=== PATIENT | female | born 1985 | race Caucasian/White ===

== ENCOUNTER 2016-09-06 12:55 | Emergency (ER) | payer OTHER ==
[2016-09-06 13:06] VITALS: BP 130/93
[2016-09-06] MEDS ORDERED: Ibuprofen TAB* 600 MG PO ONE (13:46)
--- NOTE | 2016-09-06 13:50 | RAD ---
INDICATION: Large lump in the navicular region. Pain. Fall. COMPARISON: November 29, 2006 LEFT fourth finger radiographs. TECHNIQUE: AP, lateral, and oblique views LEFT wrist. Scaphoid view obtained. AP, lateral, and oblique views LEFT hand. REPORT: No cortical disruption or suspicious trabecular irregularity to suggest fracture at the wrist or hand. Normal articular alignment throughout. Mild soft tissue swelling about the wrist. IMPRESSION: No radiographic evidence for fracture or articular malalignment at the LEFT wrist or hand. If there is high index of suspicion for an occult scaphoid fracture repeat exam in 7 - 10 days would be suggested.
--- NOTE | 2016-09-06 14:34 | UC ---
Lakia Cordon Janilya, scrib[facility] for [facility] MD on 09/06/16 at 1412 . Hand/Wrist HPI - HPI Summary HPI Summary: Nurse's note: FELL BACKWARDS ONTO HER LEFT HAND TODAY AROUND 1230. SLIPPED ON THE ICE. NO PREVIOUS INJURIES TO THIS HAND. note: Vital signs are stable. Pulse is 55. Pulse Ox is 100. 8/10 pain. Non- contributory PMHx. HPI: A 31 y/o female came in to [facility] presenting w/ a sudden onset of constant left hand pain due to fall that happened today around noon. Pt states she slipped on ice and caught herself with her left hand. She did not damage her spine. She did not lose consciousness. She did not incur any significant injuries. And generally, the pt is healthy. It hurts to move her hand. It is also difficult to fully extend her fingers or form a fist. - History Of Current Complaint Chief Complaint: UCUpperExtremity Stated Complaint: WRIST INJURY Time Seen by Provider: 09/06/16 13:01 Hx Obtained From: Patient Hx Last Menstrual Period: MIRENA Onset/Duration: Sudden Onset, Lasting Hours, Still Present Severity Initially: Moderate Severity Currently: Moderate Character Of Pain: Throbbing Alleviating: Nothing Associated Signs And Symptoms: Positive: Swelling - Allergies/Home Medications Allergies/Adverse Reactions: Allergies Allergy/AdvReac Type Severity Reaction Status Date / Time Ciprofloxacin [From Cipro] AdvReac Severe "TENDON Verified 09/06/16 13:02 PROBLEMS" PMH/Surg Hx/FS Hx/Imm Hx Previously Healthy: Yes Endocrine History Of: Denies: Diabetes, Thyroid Disease Cardiovascular History Of: Denies: Cardiac Disorders, Hypertension Respiratory History Of: Reports: Bronchitis - HX BRONCHITIS- WHILE LIVING IN [facility] Denies: COPD, Asthma GI/ History Of: Denies: Ulcer - Surgical History Surgical History: Yes Surgery Procedure, Year, and Place: DONATED EGGS-WITH ANESTHESIA. WISDOM TEETH , SURGERY A CHILD FOR CHRONIC UTIs - Family History Known Family History: Negative: Cardiac Disease, Hypertension, Diabetes - Social History Occupation: Employed Full-time Alcohol Use: Occasionally Substance Use Type: None Smoking Status (MU): Former Smoker Review of Systems Constitutional: Negative Skin: Negative Eyes: Negative ENT: Negative Respiratory: Negative Cardiovascular: Negative Gastrointestinal: Negative Genitourinary: Negative Motor: Negative Neurovascular: Negative Musculoskeletal: Arthralgia - left hand, Myalgia - left hand, Other: - mild swelling of left hand Neurological: Negative Psychological: Negative All Other Systems Reviewed And Are Negative: Yes Physical Exam Triage Information Reviewed: Yes Appearance: Well-Appearing, No Pain Distress, Well-Nourished Vital Signs: Initial Vital Signs Temp 98.3 F 09/06/16 13:03 Pulse 55 09/06/16 13:03 Resp 16 09/06/16 13:03 BP 130/93 09/06/16 13:03 Pulse Ox 100 09/06/16 13:03 Vital Signs Reviewed: Yes Eyes: Positive: Conjunctiva Clear ENT: Positive: Hearing grossly normal, Pharynx normal, TMs normal. Negative: Muffled/hoarse voice Neck: Positive: Supple, Nontender Respiratory: Positive: Chest non-tender, Lungs clear, Normal breath sounds, No respiratory distress Cardiovascular: Positive: RRR, No Murmur Abdomen Description: Positive: Nontender, No Organomegaly, Soft Bowel Sounds: Positive: Present Musculoskeletal: Positive: Other: - LEFT SHOULDER AND ELBOW NORMAL EXAM. LEFT WRIST - 2.5 CM MILD SWELLING OF DISTAL RADIUS, DORSAL ASPECT. NO ECCHYMOSIS NOTED. NO SCAPHOID TENDERNESS. RESTRICTED MOVEMENT SECONDARY TO PAIN. BLOOD CIRCULATION AND NEUROLOGICAL EXAM INTACT. Neurological: Positive: Alert Psychological: Positive: Age Appropriate Behavior Skin: Negative: rashes Diagnostics - Radiology hand xray Xray Interpretation: No Acute Changes - IMPRESSION: No radiographic evidence for fracture or articular malalignment at the LEFT wrist or hand. If there is high index of suspicion for an occult scaphoid fracture repeat exam in 7 - 10 days would be suggested. Radiology Interpretation Completed By: Radiologist wrist xray Xray Interpretation: No Acute Changes - IMPRESSION: No radiographic evidence for fracture or articular malalignment at the LEFT wrist or hand. If there is high index of suspicion for an occult scaphoid fracture repeat exam in 7 - 10 days would be suggested. Radiology Interpretation Completed By: Radiologist Hand/Wrist Course/Dx - Course Course Of Treatment: Considered fracture vs contusion and sprain of left wrist. Xrays of wrist and hand show negative results. Dx contusion and sprain of left wrist. - Differential Dx/Diagnosis Differential Diagnosis/HQI/PQRI: Contusion, Fracture, Sprain Provider Diagnoses: Contusion and sprain of left wrist. Discharge - Discharge Plan Condition: Stable Disposition: HOME Patient Education Materials: Contusion in Adults (ED), Wrist Sprain (ED) Forms: *Work Release Referrals: No Primary Care Phys,NOPCP [Primary Care Provider] - Additional Instructions: WE DISCUSSED: NO BROKEN BONES SEEN. YOU DO HAVE A LEFT WRIST SPRAIN AND CONTUSION. USE SPLINT. ELEVATE. WARM MOIST HEAT IN THE MORNING. ICE TO AREA DURING THE DAY. RE CHECK IN 2 WEEKS FOR CONTINUED PAIN OR NO IMPROVEMENT TO MAKE SURE THERE IS NO HIDDEN FRACTURE. FOR SIGNIFICANT PAIN, TRY CONTRAST BATHS. These treatments decrease swelling and pain, and increase mobility in the area of injury. Contrast treatments are usually done two to four times daily. First soak the injury in warm water for about 20 minutes. After a few minutes in the warm water, begin to gently move the joints to restore the range of motion to normal. Do not push beyond the point of discomfort. Next soak the injury in cold water (or ice) for 20 minutes. Allow it to rest while in the cold water. The documentation as recorded by the Lakia best Janilya accurately reflects the service I personally performed and the decisions made by me, Sandro Cleary MD.
== END 2016-09-06 14:40 | disposition home or self-care (01) ==
LOC: UCEAST 12:55
DX: S60.212A Contusion of left wrist, initial encounter (principal); S63.502A Unspecified sprain of left wrist, initial encounter; W00.0XXA Fall on same level due to ice and snow, initial encounter; Y93.9 Activity, unspecified; Y92.9 Unspecified place or not applicable; R03.0 Elevated blood-pressure reading, without diagnosis of hypertension; Z88.1 Allergy status to other antibiotic agents; Z87.891 Personal history of nicotine dependence
CPT/HCPCS: 99212; A9270-GY; G0463

== ENCOUNTER 2016-09-14 18:32 | Emergency (ER) | payer OTHER ==
[2016-09-14 18:51] VITALS: BP 134/72
--- NOTE | 2016-09-14 19:11 | UC ---
Skin Complaint HPI - HPI Summary HPI Summary: The patient comes in today for: 1. Sore side of the right now. Onset: one week ago, her right nasal piercing became sore. Palliative/provocative: Touching it makes it worse--more tender. Quality: Tenderness Region/radiation: Right nares. Severity: 08/12 Time: Constant. Associated symptoms: Event: She had her right nares piercing in early July of 2016 taking up to 6 months to fully heal. Draining: None. Fevers: None. * - History of Current Complaint Chief Complaint: UCSkin Time Seen by Provider: 09/14/16 18:56 Stated Complaint: SOFT TISSUE COMPLAINT Hx Obtained From: Patient Hx Last Menstrual Period: mirana ?: No - Allergy/Home Medications Allergies/Adverse Reactions: Allergies Allergy/AdvReac Type Severity Reaction Status Date / Time Ciprofloxacin [From Cipro] AdvReac Severe "TENDON Verified 09/06/16 13:02 PROBLEMS" Review of Systems Constitutional: Negative Skin: Rash Eyes: Negative ENT: Negative Respiratory: Negative Cardiovascular: Negative Gastrointestinal: Negative Genitourinary: Negative Motor: Negative All Other Systems Reviewed And Are Negative: Yes PMH/Surg Hx/FS Hx/Imm Hx Previously Healthy: Yes - Mirena/family planning. Endocrine History Of: Denies: Diabetes, Thyroid Disease, Hyperthyroidism, Hypothyroidism, Dyslipidemia Cardiovascular History Of: Denies: Cardiac Disorders, Hypertension, Pacemaker/ICD, Myocardial Infarction , Congestive Heart Failure, Atrial Fibrillation, Deep Vein Thrombosis, Bleeding Disorders Respiratory History Of: Reports: Bronchitis - HX [facility]ON[facility]IS- [facility] Denies: COPD, Asthma, Pneumonia, Pulmonary Embolism GI/ History Of: Denies: Gastroesophageal Reflux, Ulcer, Gastrointestinal Bleed, Gall Bladder Disease, Kidney Stones, Diverticulitis, Renal Disease, Urosepsis Neurological History Of: Denies: TIA, CVA, Dementia, Seizures, Migraine Psychological History Of: Denies: Anxiety, Depression, Bipolar Disorder, Schizophrenia, Post Traumatic Stress Disorder Cancer History Of: Denies: Lung Cancer, Colorectal Cancer, Breast Cancer, Prostate Cancer, Cervical Cancer Other History Of: Negative For: HIV, Hepatitis B, Hepatitis C, Anticoagulant Therapy - Surgical History Surgical History: Yes Surgery Procedure, Year, and Place: DONATED EGGS-WITH ANESTHESIA. WISDOM TEETH , SURGERY A CHILD FOR CHRONIC UTIs - Family History Known Family History: Positive: Hypertension Negative: Cardiac Disease, Diabetes - Social History Occupation: Employed Full-time Alcohol Use: Weekly Substance Use Type: None Smoking Status (MU): Former Smoker Physical Exam Triage Information Reviewed: Yes Appearance: Well-Appearing, No Pain Distress, Well-Nourished Vital Signs: Initial Vital Signs Temp 98.8 F 09/14/16 18:46 Pulse 59 09/14/16 18:46 Resp 18 09/14/16 18:46 BP 134/72 09/14/16 18:46 Pulse Ox 100 09/14/16 18:46 Vital Signs Reviewed: Yes Eyes: Positive: Conjunctiva Clear. Negative: Discharge ENT: Positive: Hearing grossly normal, Other: - She has some redness and tenderness around the right nose nasal piercing. No discharge present. No edema.. Negative: Pharyngeal erythema, Nasal congestion, Nasal drainage, TM bulging, TM dull, TM red, Tonsillar swelling, Tonsillar exudate Dental: Negative: Gross Decay/Caries @, Dental Fracture @ Neck: Positive: Supple, Nontender, No Lymphadenopathy. Negative: Nuchal Rigidity Respiratory: Positive: Chest non-tender, Lungs clear, No respiratory distress, No accessory muscle use. Negative: Crackles, Wheezing Cardiovascular: Positive: RRR, No Murmur Abdomen Description: Positive: Nontender, No Organomegaly, Soft. Negative: Distended, Guarding Musculoskeletal: Positive: Strength Intact, ROM Intact Neurological: Positive: Alert, Muscle Tone Normal Psychological: Positive: Age Appropriate Behavior, Consolable Skin: Negative: rashes, breakdown Course/Dx - Course Course Of Treatment: Patient told of my recommendation to take two antibiotics. - Differential Diagnoses - Skin Complaint Differential Diagnoses: Cellulitis - Diagnoses Provider Diagnoses: Early cellulitis of the right nares around the piercing. Discharge - Discharge Plan Condition: Stable Disposition: HOME Referrals: No Primary Care Phys,NOPCP [Primary Care Provider] - 1 Week (Please see your primary care provider next week to see how well you are doing. If you don't have a primary care provider, please call the physician referral phone line to help you get one. If you can't get in timely, you can see us until you do. If you get worse, please go to the local ER.) [facility] [place]Outside]
[2016-09-14] MEDS ORDERED: Sulfamethox/Trimethoprim DS 800/160* TAB PO ONE (19:15)
[2016-09-14] MEDS ORDERED: Cephalexin CAP* 500 MG PO ONE (19:18)
== END 2016-09-14 19:36 | disposition home or self-care (01) ==
LOC: UCEAST 18:32
DX: J34.0 Abscess, furuncle and carbuncle of nose (principal); Z88.1 Allergy status to other antibiotic agents; Z87.891 Personal history of nicotine dependence
CPT/HCPCS: 99213; A9270-GY; G0463

== ENCOUNTER 2016-11-25 15:40 | Emergency (ER) | payer OTHER ==
[2016-11-25 16:18] VITALS: BP 98/54
--- NOTE | 2016-11-25 16:41 | UC ---
Skin Complaint HPI - HPI Summary HPI Summary: Yesterday noticed a painful raised rash on L trunk, now has a new group of bumps on her back. Looked up symptoms online and thinks it is shingles. Had varicella as a child, has been training heavily for an ultramarathon recently and is feeling tired out. - History of Current Complaint Chief Complaint: UCSkin Time Seen by Provider: 11/25/16 16:20 Stated Complaint: RASH TORSO Hx Obtained From: Patient Hx Last Menstrual Period: mirena ?: No Onset/Duration: Gradual Onset, Lasting Days Timing: Constant Onset Severity: Mild Current Severity: Moderate Location: Discrete Character: Pain, Raised, Painful Associated Signs & Symptoms: Positive: Rash - Allergy/Home Medications Allergies/Adverse Reactions: Allergies Allergy/AdvReac Type Severity Reaction Status Date / Time Ciprofloxacin [From Cipro] AdvReac Severe "TENDON Verified 11/25/16 16:12 PROBLEMS" Review of Systems Constitutional: Negative Skin: Rash Eyes: Negative ENT: Negative Respiratory: Negative Cardiovascular: Negative Gastrointestinal: Negative Genitourinary: Negative Motor: Negative Neurovascular: Negative Musculoskeletal: Negative Neurological: Negative Psychological: Negative All Other Systems Reviewed And Are Negative: Yes PMH/Surg Hx/FS Hx/Imm Hx Endocrine History Of: Denies: Diabetes, Thyroid Disease, Hyperthyroidism, Hypothyroidism, Dyslipidemia Cardiovascular History Of: Denies: Cardiac Disorders, Hypertension, Pacemaker/ICD, Myocardial Infarction , Congestive Heart Failure, Atrial Fibrillation, Deep Vein Thrombosis, Bleeding Disorders Respiratory History Of: Reports: Bronchitis - HX BRONCHITIS- WHILE LIVING IN [facility] Denies: COPD, Asthma, Pneumonia, Pulmonary Embolism GI/ History Of: Denies: Gastroesophageal Reflux, Ulcer, Gastrointestinal Bleed, Gall Bladder Disease, Kidney Stones, Diverticulitis, Renal Disease, Urosepsis Neurological History Of: Denies: TIA, CVA, Dementia, Seizures, Migraine Psychological History Of: Denies: Anxiety, Depression, Bipolar Disorder, Schizophrenia, Post Traumatic Stress Disorder Cancer History Of: Denies: Lung Cancer, Colorectal Cancer, Breast Cancer, Prostate Cancer, Cervical Cancer Other History Of: Negative For: HIV, Hepatitis B, Hepatitis C, Anticoagulant Therapy - Surgical History Surgical History: Yes Surgery Procedure, Year, and Place: DONATED EGGS-WITH ANESTHESIA. WISDOM TEETH , SURGERY A CHILD FOR CHRONIC UTIs - Family History Known Family History: Positive: Hypertension Negative: Cardiac Disease, Diabetes - Social History Lives: Alone Alcohol Use: Occasionally Substance Use Type: None Smoking Status (MU): Former Smoker - Immunization History Most Recent Influenza Vaccination: none Physical Exam Triage Information Reviewed: Yes Appearance: Well-Appearing, No Pain Distress, Well-Nourished Vital Signs: Initial Vital Signs Temp 98.7 F 11/25/16 16:13 Pulse 57 11/25/16 16:13 Resp 16 11/25/16 16:13 BP 98/54 11/25/16 16:13 Pulse Ox 96 11/25/16 16:13 Vital Signs Reviewed: Yes Eye Exam: Normal Eyes: Positive: Conjunctiva Clear ENT Exam: Normal ENT: Positive: Normal ENT inspection, Hearing grossly normal, Pharynx normal, TMs normal Dental Exam: Normal Neck exam: Normal Neck: Positive: Supple, Nontender, No Lymphadenopathy Respiratory Exam: Normal Respiratory: Positive: Chest non-tender, Lungs clear, Normal breath sounds, No respiratory distress, No accessory muscle use Cardiovascular Exam: Normal Cardiovascular: Positive: RRR, No Murmur Musculoskeletal Exam: Normal Neurological Exam: Normal Neurological: Positive: Alert, Muscle Tone Normal Psychological Exam: Normal Skin Exam: Other - grouped vesicles on an erythematous base following dermatomal pattern L trunk Course/Dx - Diagnoses Provider Diagnoses: varicella zoster L chest Discharge - Discharge Plan Condition: Stable Disposition: HOME Prescriptions: ValACYclovir (*) [Valtrex 1 GM(*)] 1 gm PO TID #21 tab Patient Education Materials: Shingles (ED) Referrals: No Primary Care Phys,NOPCP [Primary Care Provider] - Additional Instructions: If you are unable to manage your pain with ibuprofen alone you can get me a message on Thursday or Thursday and I can send in a prescription for something like codeine or hydrocodone.
== END 2016-11-25 16:45 | disposition home or self-care (01) ==
LOC: UCEAST 15:40
DX: B02.9 Zoster without complications (principal); Z88.3 Allergy status to other anti-infective agents; Z87.09 Personal history of other diseases of the respiratory system; Z87.891 Personal history of nicotine dependence
CPT/HCPCS: 99212; G0463

== ENCOUNTER 2017-01-18 12:03 | Emergency (ER) | payer OTHER ==
[2017-01-18 12:10] VITALS: BP 108/60
[2017-01-18] MEDS ORDERED: Ibuprofen TAB* 400 MG PO ONE (12:58)
[2017-01-18] MEDS ORDERED: oxyCODONE/Acetamin 5/325 MG* TAB PO ONE ×2 (12:58→13:41)
[2017-01-18] MEDS ORDERED: oxyCODONE/Acetamin 5/325 MG* TAB ONE (13:43)
--- NOTE | 2017-01-18 13:47 | RAD ---
INDICATION: Left upper arm and shoulder pain after a fall TECHNIQUE: 4 views of the left shoulder and 2 views of the left humerus were obtained. FINDINGS: There is a comminuted fracture involving the surgical neck and greater trochanter of the left humerus. There is a small degree of impaction. The glenohumeral joint is otherwise appropriately articulated. The remaining visualized bones are intact and appropriately aligned. IMPRESSION: COMMINUTED FRACTURE INVOLVING THE LEFT HUMERAL SURGICAL NECK AND GREATER TROCHANTER.
--- NOTE | 2017-01-18 13:50 | ED ---
Upper Extremity Pain - HPI Summary HPI Summary: Patient is training for a 60 mile ultra marathon that is in two weeks and while running today she tripped and fell. She landed on her left shoulder and had immediate severe pain. EMS was called and she was transported to the ED. She denies previous injury to this shoulder. She is right handed. She denies N/T in the extremity. - History of Current Complaint Chief Complaint: EDExtremityUpper Stated Complaint: FALL Time Seen by Provider: 01/18/17 12:31 Hx Obtained From: Patient Hx Last Menstrual Period: mirena Mechanism Of Injury: Fall From A Standing Position Onset/Duration: Started Hours Ago Timing: Constant Severity Initially: Severe Severity Currently: Severe Pain Location: Shoulder Character: Sharp, Aching Aggravating Factor(s): Movement Alleviating Factor(s): Nothing Associated Signs & Symptoms: Positive: Swelling Related History: Dominant Hand Right - Allergies/Home Medications Allergies/Adverse Reactions: Allergies Allergy/AdvReac Type Severity Reaction Status Date / Time Ciprofloxacin [From Cipro] AdvReac Severe "TENDON Verified 11/25/16 16:12 PROBLEMS" PMH/Surg Hx/FS Hx/Imm Hx Previously Healthy: Yes Endocrine/Hematology History: Denies: Hx Anticoagulant Therapy, Hx Diabetes, Hx Thyroid Disease Cardiovascular History: Denies: Hx Congestive Heart Failure, Hx Deep Vein Thrombosis, Hx Hypertension , Hx Myocardial Infarction, Hx Pacemaker/ICD Respiratory History: Denies: Hx Asthma, Hx Chronic Obstructive Pulmonary Disease (COPD), Hx Lung Cancer, Hx Pneumonia, Hx Pulmonary Embolism GI History: Denies: Hx Gall Bladder Disease, Hx Gastrointestinal Bleed, Hx Ulcer, Hx Urosepsis History: Denies: Hx Kidney Stones, Hx Renal Disease Sensory History: Reports: Hx Contacts or Glasses - GLASSES Denies: Hx Hearing Aid Opthamlomology History: Reports: Hx Contacts or Glasses - GLASSES Neurological History: Denies: Hx Dementia, Hx Migraine, Hx Seizures, Hx Transient Ischemic Attacks (TIA) Psychiatric History: Denies: Hx Anxiety, Hx Eating Disorder, Hx Depression, Hx Schizophrenia, Hx Bipolar Disorder, Hx of Violent Episodes Against Others - Surgical History Surgery Procedure, Year, and Place: DONATED EGGS-WITH ANESTHESIA. WISDOM TEETH , SURGERY A CHILD FOR CHRONIC UTIs Hx Anesthesia Reactions: Yes - WISDOM TEETH- STARTED TO WAKE UP DURING THE PROCEDURE Infectious Disease History: Denies: Hx Clostridium Difficile, Hx Hepatitis, Hx Human Immunodeficiency Virus (HIV), Hx of Known/Suspected MRSA, Hx Shingles, Hx Tuberculosis, Hx Known/ Suspected VRE, Hx Known/Suspected VRSA, History Other Infectious Disease, Traveled Outside the [place] in Last 30 Days - Family History Known Family History: Positive: Hypertension Negative: Cardiac Disease, Diabetes - Social History Occupation: Employed Full-time Lives: Alone Alcohol Use: Occasionally Substance Use Type: Reports: None Smoking Status (MU): Former Smoker Review of Systems Positive: Myalgia, Decreased ROM, Edema Negative: Paresthesia, Numbness All Other Systems Reviewed And Are Negative: Yes Physical Exam Triage Information Reviewed: Yes Vital Signs On Initial Exam: Initial Vitals Temp Pulse Resp BP Pulse Ox 98.8 F 60 18 108/60 100 01/18/17 12:08 01/18/17 12:08 01/18/17 12:08 01/18/17 12:08 01/18/17 12:08 Vital Signs Reviewed: Yes Appearance: Positive: Well-Appearing, Well-Nourished, Pain Distress Skin: Positive: Warm, Skin Color Reflects Adequate Perfusion, Dry, Soft Head/Face: Positive: Normal Head/Face Inspection Eyes: Positive: EOMI, SIMONA, Conjunctiva Clear ENT: Positive: Hearing grossly normal Respiratory/Lung Sounds: Positive: Breath Sounds Present Cardiovascular: Positive: RRR Musculoskeletal: Positive: Limited @ - movement in any direction of the left shoulder is limited by pain, Pain @ - TTP proximal humerus; non-tender scapular spine, clavicle or distal humerus and elbow., Edema Left - shoulder Neurological: Positive: Sensory/Motor Intact, Alert, Oriented to Person Place, Time, NV Bundle Intact Distally, Normal Gait Psychiatric: Positive: Affect/Mood Appropriate AVPU Assessment: Alert Procedures - Splinting Location: left shoulder Pre-Made Type: velcro Splint: shoulder immobilizer Pre-Proc Neuro Vasc Exam: normal Post-Proc Neuro Vasc Exam: normal Diagnostics - Vital Signs Vital Signs Temp Pulse Resp BP Pulse Ox 01/18/17 12:33 98.8 F 60 18 108/60 100 01/18/17 12:08 98.8 F 60 18 108/60 100 - Laboratory Lab Statement: Any lab studies that have been ordered have been reviewed, and results considered in the medical decision making process. - Radiology No standard instances Xray Interpretation: Positive (See Comments) Radiology Interpretation Completed By: Radiologist - comminuted left proximal humerus fracture - CT No standard instances CT Interpretation: Positive (See Comments) CT Interpretation Completed By: Radiologist - left comminuted proximal humerus fracture Course/Dx - Diagnoses Differential Diagnosis/HQI/PQRI: Positive: Arthritis, Bursitis, Contusion, Fracture (Closed), Hematoma, Strain, Sprain Provider Diagnoses: Comminuted left humeral fracture - Physician Notifications Discussed Care of Patient With: Dr. Waite, orthopedic surgeon Instructed by Provider To: Have Pt Call For Appt. Discharge - Discharge Plan Condition: Stable Disposition: HOME Prescriptions: Ibuprofen TAB* [Motrin TAB* 600 MG] 600 mg PO Q6H PRN #60 tab PRN Reason: Pain oxyCODONE/Acetamin 5/325 MG* [Percocet 5/325 TAB*] 2 tab PO Q4H PRN #40 tab MDD 12 PRN Reason: Pain Patient Education Materials: Proximal Humerus Fracture (ED) Referrals: Moreno Waite MD [Medical Doctor] - No Primary Care Phys,NOPCP [Primary Care Provider] - Additional Instructions: Wear your immobilizer at all times. You can move your elbow, wrist and hand but do not take your arm away from your body. Apply ice to the shoulder for 20 minutes several times daily to decrease swelling and pain. Use ibuprofen 600mg three times daily with meals for the next 5-7 days to decrease swelling and pain as well. Take the pain pill as needed for uncontrolled pain. Sleep in an upright position to reduce pain. Call Dr. aWite's office in the morning for an appointment this week for evaluation. Return to the emergency department if your symptoms worsen.
--- NOTE | 2017-01-18 14:57 | RAD ---
INDICATION: Left shoulder pain after a fall COMPARISON: Same day radiograph that shows a comminuted fracture at the left humerus TECHNIQUE: Noncontrast CT examination of the left humerus. Axial images were acquired and sagittal and coronal reformats were created and independently analyzed. FINDINGS: There is a comminuted fracture at the left surgical neck with a small degree of impaction of the shaft towards the humeral head. The fracture involves the greater trochanter. The humeral head appears to be appropriately articulated with the bony glenoid labrum. There is widening of the superior aspect of the left acromioclavicular joint. The capsule appears to be intact. Remaining visualized bones are intact. IMPRESSION: 1. Comminuted fracture involving the surgical neck and greater tuberosity of the left humerus. 2. Potential grade 1 left acromioclavicular separation.
== END 2017-01-18 15:07 | disposition home or self-care (01) ==
LOC: ED 12:03
DX: S42.202A Unspecified fracture of upper end of left humerus, initial encounter for closed fracture (principal); W01.0XXA Fall on same level from slipping, tripping and stumbling without subsequent striking against object, initial encounter; Y93.02 Activity, running; Y92.9 Unspecified place or not applicable; Z88.1 Allergy status to other antibiotic agents; Z87.891 Personal history of nicotine dependence
CPT/HCPCS: 99282; A9270-GY

== ENCOUNTER 2018-12-06 16:16 | Emergency (ER) | payer OTHER ==
[2018-12-06 17:49] VITALS: BP 115/74
[2018-12-06] MEDS ORDERED: Ibuprofen TAB* 600 MG PO ONE (18:24)
--- NOTE | 2018-12-06 18:27 | UC ---
Throat Pain/Nasal Yung HPI - HPI Summary HPI Summary: 33-year-old woman 33-year-old woman comes in with a chief complaint of one week of upper respiratory tract infection symptoms. She's had some rhinorrhea and it 's yellow and green. Also coughing up yellow green and brown sputum. She's also now developing drainage in her right eye. Since yesterday her symptoms got quite a bit worse. She is having fevers now. She is not a smoker. - History of Current Complaint Chief Complaint: UCRespiratory Stated Complaint: SORE THROAT, AND COUGH Time Seen by Provider: 12/06/18 18:03 Hx Last Menstrual Period: MIRENA IUD Pain Intensity: 6 - Allergies/Home Medications Allergies/Adverse Reactions: Allergies Allergy/AdvReac Type Severity Reaction Status Date / Time ciprofloxacin [From Cipro] Allergy "TENDON Verified 12/06/18 17:50 PROBLEMS" Home Medications: Home Medications Dextromethorphn/Acetaminoph/Cp [Vicks Nyquil Cold & Flu N] 1 liq PO ONCE PRN 01/19 [History Confirmed 12/06/18] PMH/Surg Hx/FS Hx/Imm Hx Previously Healthy: Yes Other History Of: Negative For: HIV, Hepatitis B, Hepatitis C, Anticoagulant Therapy - Surgical History Surgical History: Yes Surgery Procedure, Year, and Place: DONATED EGGS-WITH ANESTHESIA,. WISDOM TEETH , SURGERY A CHILD FOR CHRONIC , SINUS SURGERY - Family History Known Family History: Positive: Hypertension Negative: Cardiac Disease, Diabetes - Social History Alcohol Use: Occasionally Substance Use Type: None Smoking Status (MU): Former Smoker - Immunization History Most Recent Influenza Vaccination: none Review of Systems All Other Systems Reviewed And Are Negative: Yes Constitutional: Positive: Fever, Chills Skin: Positive: Negative Eyes: Positive: Drainage, Eye Redness ENT: Positive: Sore Throat, Nasal Discharge, Sinus Congestion Respiratory: Positive: Cough, Other - SEE HPI Cardiovascular: Positive: Negative Gastrointestinal: Positive: Negative Motor: Positive: Negative Neurovascular: Positive: Negative Musculoskeletal: Positive: Negative Neurological: Positive: Negative Psychological: Positive: Negative Is Patient Immunocompromised?: No Physical Exam Triage Information Reviewed: Yes Appearance: No Pain Distress, Well-Nourished, Ill-Appearing - MILD Vital Signs: Initial Vital Signs Temp 101.2 F 12/06/18 17:42 Pulse 99 12/06/18 17:42 Resp 20 05/06/19 17:42 BP 115/74 12/06/18 17:42 Pulse Ox 98 12/06/18 17:42 Vital Signs Reviewed: Yes Eyes: Positive: Conjunctiva Inflamed - RT, Discharge - RT ENT: Positive: Pharyngeal erythema, Nasal congestion, Nasal drainage, TMs normal Neck: Positive: Supple Respiratory: Positive: Lungs clear, Normal breath sounds, No respiratory distress Cardiovascular: Positive: RRR Musculoskeletal Exam: Normal Musculoskeletal: Positive: Strength Intact, ROM Intact Neurological Exam: Normal Neurological: Positive: Alert, Muscle Tone Normal Psychological Exam: Normal Psychological: Positive: Age Appropriate Behavior Skin Exam: Normal Throat Pain/Nasal Course/Dx - Course Course Of Treatment: Due to the fevers and color of rhinorrhea/sputum, will Rx ABx. - Differential Dx/Diagnosis Provider Diagnosis: Sinusitis, Conjunctivitis Discharge - Sign-Out/Discharge Documenting (check all that apply): Patient Departure All imaging exams completed and their final reports reviewed: No Studies - Discharge Plan Condition: Stable Disposition: HOME Prescriptions: Amoxicillin/Clavulanate TAB* [Augmentin TAB 875*] 875 mg PO BID #20 tab Tobramycin 0.3% OPHTH.RAUL* 1 drop RIGHT EYE Q4H #1 btl Patient Education Materials: Sinusitis (ED), Conjunctivitis (ED) Forms: *Work Release Referrals: [facility] [place] [facility] [Outside] Additional Instructions: FOLLOW UP WITH YOUR DOCTOR IF NOT COMPLETELY IMPROVED. GET REEVALUATED SOONER IF YOUR CONDITION WORSENS OR ANY QUESTIONS OR CONCERNS. - Billing Disposition and Condition Condition: STABLE Disposition: Home
== END 2018-12-06 18:30 | disposition home or self-care (01) ==
LOC: UCEAST 16:16
DX: J32.9 Chronic sinusitis, unspecified (principal); H10.31 Unspecified acute conjunctivitis, right eye; R50.9 Fever, unspecified; Z88.1 Allergy status to other antibiotic agents; Z87.891 Personal history of nicotine dependence
CPT/HCPCS: 99212; A9270-GY; G0463

== ENCOUNTER 2019-01-11 16:14 | Emergency (ER) | payer OTHER ==
[2019-01-11 17:16] VITALS: BP 117/59
--- NOTE | 2019-01-11 17:18 | UC ---
Respiratory Complaint HPI - HPI Summary HPI Summary: 33 yo female presents with sinus pain/pressure/congestion, post nasal drip, and intermittently productive cough for the last 4-5 days. She tells me that she was seen about a month ago for similar symptoms, but were much worse at that time. She was placed on Augmentin and her symptoms resolved for a few days, but then she began to have a dry cough that has persisted for about 2 weeks. Over the last 4-5 days her symptoms have progressed as above. She has been taking OTC cough syrup with no relief. She does not smoke. Denies fever, chills, sore throat, rash, SOB. - History of Current Complaint Chief Complaint: UCRespiratory Stated Complaint: URI Time Seen by Provider: 01/11/19 17:17 Hx Obtained From: Patient Hx Last Menstrual Period: IUD in place Onset/Duration: Gradual Onset Severity Initially: Mild Severity Currently: Mild Pain Intensity: 4 Pain Scale Used: 0-10 Numeric - Allergies/Home Medications Allergies/Adverse Reactions: Allergies Allergy/AdvReac Type Severity Reaction Status Date / Time ciprofloxacin [From Cipro] Allergy "TENDON Verified 01/11/19 17:16 PROBLEMS" PMH/Surg Hx/FS Hx/Imm Hx - Additional Past Medical History Additional PMH: None Other History Of: Negative For: HIV, Hepatitis B, Hepatitis C, Anticoagulant Therapy - Surgical History Surgical History: Yes Surgery Procedure, Year, and Place: DONATED EGGS-WITH ANESTHESIA,. WISDOM TEETH , SURGERY A CHILD FOR CHRONIC , SINUS SURGERY - Family History Known Family History: Positive: Hypertension Negative: Cardiac Disease, Diabetes - Social History Occupation: Employed Full-time Lives: With Family Alcohol Use: Occasionally Substance Use Type: None Smoking Status (MU): Former Smoker - Immunization History Most Recent Influenza Vaccination: none Review of Systems All Other Systems Reviewed And Are Negative: Yes Constitutional: Positive: Negative Skin: Positive: Negative Eyes: Positive: Negative ENT: Positive: Nasal Discharge, Sinus Congestion, Sinus Pain/Tenderness Respiratory: Positive: Cough Cardiovascular: Positive: Negative Gastrointestinal: Positive: Negative Neurovascular: Positive: Negative Neurological: Positive: Negative Psychological: Positive: Negative Physical Exam - Summary Physical Exam Summary: GENERAL: NAD. WDWN. No pain distress. SKIN: No rashes, sores, lesions, or open wounds. HEENT: Head: AT/NC Eyes: EOM intact. Conjunctiva clear without inflammation or discharge. Ears: Hearing grossly normal. TMs intact, no bulging, erythema, or edema. Nose: Nasal mucosa on left mildly swollen and erythematous with yellow discharge. TTP maxillary sinus. Positive post nasal drip Throat: Posterior oropharynx without exudates, erythema, or tonsillar enlargement. Uvula midline. NECK: Supple. Nontender. No lymphadenopathy. CHEST: CTAB. No r/r/w. No accessory muscle use. Breathing comfortably and in no distress. CV: RRR. Without m/r/g. Pulses intact. NEURO: Alert. PSYCH: Age appropriate behavior. Triage Information Reviewed: Yes Vital Signs: Initial Vital Signs Temp 98.5 F 01/11/19 17:10 Pulse 63 01/11/19 17:10 Resp 18 01/11/19 17:10 BP 117/59 01/11/19 17:10 Pulse Ox 97 01/11/19 17:10 Vital Signs Reviewed: Yes Respiratory Course/Dx - Course Course Of Treatment: Suspect allergies vs sinusitis/bronchitis. - Differential Dx/Diagnosis Provider Diagnosis: Sinusitis, Cough Discharge - Sign-Out/Discharge Documenting (check all that apply): Patient Departure All imaging exams completed and their final reports reviewed: No Studies - Discharge Plan Condition: Stable Disposition: HOME Prescriptions: Azithromycin TAB* [Zithromax TAB (Z-DONOVAN) 250 mg #6 tabs] 2 tab PO .TODAY, THEN 1 DAILY #1 donovan Benzonatate CAP* [Tessalon 100 MG CAP*] 100 mg PO TID PRN #21 cap PRN Reason: Cough Codeine Phosphate/Guaifenesin [Guaifen-Codeine 100-10 mg/5 ml] 5 ml PO BEDTIME PRN #35 ml MDD 5mL PRN Reason: Cough Loratadine [Claritin] 10 mg PO DAILY #14 tablet predniSONE TAB* [Deltasone 20 MG TAB*] 40 mg PO DAILY #10 tab Patient Education Materials: Sinusitis (ED), Allergies (ED), Acute Cough (ED) Referrals: No Primary Care Phys,NOPCP [Primary Care Provider] - Additional Instructions: If you develop a fever, shortness of breath, chest pain, new or worsening symptoms - please call your PCP or go to the ED immediately. - Billing Disposition and Condition Condition: STABLE Disposition: Home
== END 2019-01-11 18:01 | disposition home or self-care (01) ==
LOC: UCEAST 16:14
DX: J32.9 Chronic sinusitis, unspecified (principal); R05 Cough; Z88.1 Allergy status to other antibiotic agents; Z87.891 Personal history of nicotine dependence
CPT/HCPCS: 99212; G0463

== ENCOUNTER 2019-02-12 10:31 | Emergency (ER) | payer OTHER ==
[2019-02-12 11:30] VITALS: BP 116/71
--- NOTE | 2019-02-12 12:17 | UC ---
Respiratory Complaint HPI - HPI Summary HPI Summary: was sick December 2018 with cough, sinusitis, treated with Augmentin and started to feel better after few days. was well for 5-7 days and then starte to cough and feel bad again, was treated with Z-tasneem at that time, felt better but never completely well. 3 days ago started feeling worse again with sinus congestion, PND, cough. taking no meds thus far. no recent travel - History of Current Complaint Chief Complaint: UCGeneralIllness Stated Complaint: SINUS COMPLAINT Time Seen by Provider: 02/12/19 12:01 Hx Obtained From: Patient Hx Last Menstrual Period: mirena ?: No Onset/Duration: Gradual Onset Pain Intensity: 0 Character: Cough: Nonproductive Aggravating Factors: Deep Breaths Alleviating Factors: Nothing Associated Signs And Symptoms: Positive: Nasal Congestion, Hoarseness, Sinus Discomfort. Negative: Dyspnea, Fever, Chills, Wheezing, Hemoptysis - Allergies/Home Medications Allergies/Adverse Reactions: Allergies Allergy/AdvReac Type Severity Reaction Status Date / Time ciprofloxacin [From Cipro] AdvReac "TENDON Verified 02/12/19 11:31 PROBLEMS" PMH/Surg Hx/FS Hx/Imm Hx Previously Healthy: Yes Other History Of: Negative For: HIV, Hepatitis B, Hepatitis C, Anticoagulant Therapy - Surgical History Surgical History: Yes Surgery Procedure, Year, and Place: DONATED EGGS-WITH ANESTHESIA,. WISDOM TEETH , SURGERY A CHILD FOR CHRONIC , SINUS SURGERY - Family History Known Family History: Positive: Hypertension Negative: Cardiac Disease, Diabetes - Social History Occupation: Employed Full-time - administration Lives: With Family Alcohol Use: Occasionally Substance Use Type: None Smoking Status (MU): Former Smoker - Immunization History Most Recent Influenza Vaccination: none Review of Systems All Other Systems Reviewed And Are Negative: Yes Constitutional: Positive: Negative Skin: Positive: Negative. Negative: Rash Eyes: Positive: Negative. Negative: Drainage ENT: Positive: Sinus Congestion, Sinus Pain/Tenderness. Negative: Dental Pain Respiratory: Positive: Cough. Negative: Shortness Of Breath Cardiovascular: Positive: Negative. Negative: Chest Pain Genitourinary: Positive: Negative Musculoskeletal: Positive: Negative Psychological: Positive: Negative Is Patient Immunocompromised?: No Physical Exam Triage Information Reviewed: Yes Appearance: Well-Appearing, No Pain Distress, Well-Nourished Vital Signs: Initial Vital Signs Temp 98.9 F 02/12/19 11:24 Pulse 73 02/12/19 11:24 Resp 16 02/12/19 11:24 BP 116/71 02/12/19 11:24 Pulse Ox 99 02/12/19 11:24 Vital Signs Reviewed: Yes Eye Exam: Normal Eyes: Positive: Conjunctiva Clear ENT: Positive: Nasal congestion, Sinus tenderness, Other - clear PND Neck exam: Normal Neck: Positive: No Lymphadenopathy Respiratory: Positive: Lungs clear, Other: - dry cough on exam Cardiovascular Exam: Normal Neurological Exam: Normal Psychological Exam: Normal Skin Exam: Normal Skin: Negative: Rashes Respiratory Course/Dx - Differential Dx/Diagnosis Differential Diagnosis/HQI/PQRI: Bronchitis, Lower Resp Infection, Sinusitis Provider Diagnosis: Sinusitis Discharge - Sign-Out/Discharge Documenting (check all that apply): Patient Departure All imaging exams completed and their final reports reviewed: Yes - Discharge Plan Condition: Good Disposition: HOME Prescriptions: DOXYcycline CAP(*) [DOXYcycline 100MG CAP(*)] 100 mg PO BID #20 cap Patient Education Materials: Sinusitis (ED) Referrals: No Primary Care Phys,NOPCP [Primary Care Provider] - Venkata Langley MD [Medical Doctor] - 1 Week (for re-evaluation of sinusitis) Additional Instructions: take doxycycline antibiotic as directed drink plenty of fluids Take a multi vitamin every day return if your symptoms worsen at any time - Billing Disposition and Condition Condition: GOOD Disposition: Home
== END 2019-02-12 12:59 | disposition home or self-care (01) ==
LOC: UCEAST 10:31
DX: J32.9 Chronic sinusitis, unspecified (principal); Z87.891 Personal history of nicotine dependence
CPT/HCPCS: 71046; 99212; G0463

== ENCOUNTER 2019-09-22 17:30 | Emergency (ER) | payer OTHER ==
--- OUTSIDE RECORDS SUMMARY | 2019-09-22 17:37 | XMS REPORT | Continuity of Care Document ---
:1985 External Reference #:[id number] Author Name Marily Chapman MD Address [address] [place] [address] Problems Description No Information Available Social History Type Date Description Comments Sex Unknown Tobacco Use Start: Unknown End: Patient is a former smoker quit 18+ years ago Unknown Smoking Status Reviewed: 08/29/19 Patient is a former smoker quit 18+ years ago Allergies, Adverse Reactions, Alerts Active Allergies Reaction Severity Comments Date Cipro 07/07/2019 Medications Active Medications SIG Qnty Indications Ordering Provider Date Amphetamine-Dextroamp 1 by mouth every 30caps F90.9 Marily Chapman, 2018 het ER day every morning 10mg Caps ER f90.9 adhd 24HR History Medications No Active Medications Unknown 07/07/2019 - 07/20/2019 Immunizations Description No Information Available Vital Signs Date Vital Result Comment 08/29/2019 10:32am BP Systolic 108 mmHg BP Diastolic 84 mmHg Height 65 inches 5'5" Weight 149.00 lb Heart Rate 110 /min Body Temperature 97.7 F O2 % BldC Oximetry 97 % BMI (Body Mass Index) 24.8 kg/m2 07/20/2019 10:04am BP Systolic 118 mmHg BP Diastolic 68 mmHg Heart Rate 73 /min Body Temperature 98.3 F O2 % BldC Oximetry 99 % Results Test Acquired Date Facility Test Result H/L Range Note Urine Culture And 07/20/2019 [facility] Urine Culture SEE RESULT 1, [address] [place] [address] [phone] CFM Urinalysis 07/20/2019 [facility] Urine 1.015 ( )- - Specific [place] Ua PH Test Strip 7.0 Ua Color <pending> Ua Appearance <pending> Ua WBC small Ua Protein negative Urine Glucose QL negative Urine Ketones QL Test Strip negative Urine Bilirubin TTL QL T-Strip negative Urine Urobilinogen QN TS 0.2 E.U./dL Urine Nitrite QL TS negative Ua Occult Blood negative 1 [id number] 2 SEE RESULT BELOW Name: [place] ZACARIAS : [address]: Marily Chapman MD Acct: [id number] Unit: [id number] AGE: 34 Location: [facility] Re07/20/19 SEX: F Status: REG REF SPEC: [id number] ASHLEY: 07/20/[address]: Marily Chapman MD REQ: [id number] RECD: 07/20/19 STATUS: COMP _ SOURCE: URINE SPDESC: ORDERED: Urine Culture COMMENTS: [id number] Urine Source: Random Procedure Result Reported Site Urine Culture Final 07/21/19- 1506 ML No growth of clinically significant organisms * ML - Main Lab . END OF REPORT DEPARTMENT OF PATHOLOGY, [address] [place] [address] Fabricio Shoemaker M.D. Director [facility] # [id number] Procedures Date Code Description Status 07/20/2019 95184 Brief Emotional/Behav Assessment W/ Scoring Doc Per Completed Standard Inst Medical Devices Description No Information Available Encounters Type Date Location Provider Dx Diagnosis Office Visit 08/29/2019 [facility] Main Marily Chapman MD F90.9 Attention- deficit 10:15a hyperactivity disorder, unspecified type S90.829A Blister (nonthermal), unspecified foot, initial encounter Office Visit 07/20/2019 10:00a [facility] Main Marily Chapman MD R82.90 Unspecified abnormal findings in urine F90.9 Attention-deficit hyperactivity disorder, unspecified type Z13.31 Encounter for screening for depression Office Visit 07/07/2019 9:15a [facility] Debbie David CRISIS COUNSELOR R41.840 Attention and concentration deficit Assessments Date Code Description Provider 08/29/2019 F90.9 Attention-deficit hyperactivity disorder, Marily Chapman MD unspecified type 08/29/2019 S90.829A Blister (nonthermal), unspecified foot, Marily Chapman MD initial encounter 07/20/2019 R82.90 Unspecified abnormal findings in urine Marily Chapman MD 07/20/2019 F90.9 Attention-deficit hyperactivity disorder, Marily Chapman MD unspecified type 07/20/2019 Z13.31 Encounter for screening for depression Marily Chapman MD 07/07/2019 R41.840 Attention and concentration deficit [place] Plan of Treatment Future Appointment(s):11/16/2019 8:30 am - Marily Chapman MD at [facility] Main2019 - Marily Chapman MDF90.9 Attention-deficit hyperactivity disorder, unspecified typeS90.829A Blister (nonthermal), unspecified foot, initial encounter Functional Status Description No Information Available Mental Status Description No Information Available Referrals Description No Information Available
[2019-09-22 17:48] VITALS: BP 120/83
--- NOTE | 2019-09-22 19:04 | UC ---
Complaint Female HPI - HPI Summary HPI Summary: 34-year-old female presenting with dysuria, hematuria, urgency 1 day. Notes that her "vulva aches." Denies abnormal discharge. Denies abdominal pain. Denies flank pain. Denies fever and chills. Denies n/v. Patient states she has a long history of UTIs dating back to childhood. - History Of Current Complaint Chief Complaint: UCGU Stated Complaint: POSS UTI Hx Obtained From: Patient Hx Last Menstrual Period: 12+ months Pain Intensity: 7 Pain Scale Used: 0-10 Numeric - Allergies/Home Medications Allergies/Adverse Reactions: Allergies Allergy/AdvReac Type Severity Reaction Status Date / Time ciprofloxacin [From Cipro] AdvReac "TENDON Verified 09/22/19 17:48 PROBLEMS" Home Medications: Home Medications Levonorgestrel (IUD) (NF) [Mirena (NF)] 20 mcg IU ONCE 10/03/15 [History Confirmed 09/22/19] Phenazopyridine TAB* [Pyridium 100 mg TAB*] 100 mg PO TID PRN #9 tab 09/22/19 [ Rx] Sulfamethox/Trimethoprim DS* [Bactrim DS 800/160 TAB*] 1 tab PO BID #10 tab [Rx] PMH/Surg Hx/FS Hx/Imm Hx Previously Healthy: Yes Psychological History: Other - ADHD Other History Of: Negative For: HIV, Hepatitis B, Hepatitis C, Anticoagulant Therapy - Surgical History Surgical History: Yes Surgery Procedure, Year, and Place: DONATED EGGS-WITH ANESTHESIA,. WISDOM TEETH , SURGERY A CHILD FOR CHRONIC , SINUS SURGERY - Family History Known Family History: Positive: Hypertension Negative: Cardiac Disease, Diabetes - Social History Alcohol Use: Occasionally Substance Use Type: None Smoking Status (MU): Former Smoker - Immunization History Most Recent Influenza Vaccination: none Review of Systems All Other Systems Reviewed And Are Negative: Yes Constitutional: Positive: Negative Respiratory: Positive: Negative Cardiovascular: Positive: Negative Gastrointestinal: Positive: Negative Genitourinary: Positive: Dysuria, Hematuria, Urgency Musculoskeletal: Positive: Negative Neurological/Mental Status: Positive: Negative Physical Exam - Summary Physical Exam Summary: Vital Signs Reviewed: Yes A+Ox3, no distress Eyes: Conjunctiva Clear ENT: Hearing grossly normal neck: supple Respiratory: Positive: No respiratory distress, No accessory muscle use Cardiovascular: skin color reflect adequate perfusion ABD: soft, nontender, no distention, no CVA tenderness Musculoskeletal Exam: RODRIGUEZ x 4 without difficulty Neurological: Positive: Alert, ambulatory without difficulty Psychological: Positive: Normal Response To Family Skin: Positive: no rash, no ecchymosis Vital Signs: Initial Vital Signs Temp 99.3 F 09/22/19 17:45 Pulse 80 09/22/19 17:45 Resp 15 09/22/19 17:45 BP 120/83 09/22/19 17:45 Pulse Ox 100 09/22/19 17:45 Lab Results 09/22/19 09/22/19 Range/Units 18:57 18:59 POC Urine Color Dark yellow POC Urine Clarity Cloudy POC Urine pH 6.0 (5-9) POC Ur Specif [place] 1.015 (1.010-1.030) POC Urine Protein 1+ A (Negative) POC Ur Glucose (UA) Negative (Negative) POC Urine Ketones Negative (Negative) POC Urine Blood 3+ A (Negative) POC Urine Nitrite Negative (Negative) POC Urine Bilirubin Negative (Negative) POC Urine Urobilinogen 0.2 (Negative) POC U Leukocyte Esteras 1+ A (Negative) POC Ur Test Negative (Negative) Complaint Female Dx - Course Course Of Treatment: UA positive for leuks and blood. I treated with bactrim and pyridium and instructed to increase fluid intake. Instructed to follow up with pcp for persistent symptoms or go to ED with new or worsening symptoms. Patient voiced understanding and agreed with treatment plan. - Differential Dx/Diagnosis Provider Diagnosis: UTI (urinary tract infection) Discharge ED - Sign-Out/Discharge Documenting (check all that apply): Patient Departure All imaging exams completed and their final reports reviewed: No Studies - Discharge Plan Condition: Stable Disposition: HOME Prescriptions: Phenazopyridine TAB* [Pyridium 100 mg TAB*] 100 mg PO TID PRN #9 tab PRN Reason: Spasms - Bladder Sulfamethox/Trimethoprim DS* [Bactrim DS 800/160 TAB*] 1 tab PO BID #10 tab Patient Education Materials: Urinary Tract Infection in Women (ED) Referrals: Marily Chapman MD [Primary Care Provider] - Additional Instructions: As discussed, take Bactrim for treatment of your UTI. You may also take the pyridium as needed for symptomatic relief. Increase your fluid intake. Follow up with your PCP if symptoms do not resolve. Return or go to emergency room with any new or worsening symptoms. - Billing Disposition and Condition Condition: STABLE Disposition: Home
== END 2019-09-22 19:20 | disposition home or self-care (01) ==
LOC: UCEAST 17:30
DX: N39.0 Urinary tract infection, site not specified (principal); R31.9 Hematuria, unspecified; F90.8 Attention-deficit hyperactivity disorder, other type; Z88.1 Allergy status to other antibiotic agents; Z87.891 Personal history of nicotine dependence
CPT/HCPCS: 81003; 84702; 87077; 87086; 87186; 99212; G0463